=== PATIENT | female | born 1990 | race Caucasian/White ===

== ENCOUNTER 2017-04-12 17:36 | Emergency (ER) | payer OTHER ==
[~2017-04-12] VITALS: Ht 188 cm; Wt 122.0 kg
[2017-04-12 17:40] VITALS: Ht 188 cm; Wt 122.0 kg
[2017-04-12] MEDS ORDERED: ACETAMINOPHEN 325 MG TAB PO ONE (18:30)
--- NOTE | 2017-04-12 18:38 | RADRPT ---
PROCEDURE: CT Brain without contrast. CLINICAL INDICATION: Trauma. Pain. . TECHNIQUE: Serial axial computed tomographic images of the brain was performed on a CT scanner fro m the skull base through the vertex without contrast. Exam CTDlvol = 44 mGy and DLP = 720 mGy-cm. One of the following 3 dose reduction techniques were used: Automated exposure control; adjustment of the mA and/or kV according to patient size; or use of iterative reconstruction technique. COMPARISON: None available. FINDINGS: There is no fracture. The ventricles and sulci are normal in size and configuration. There is no m idline shift. There are no focal parenchymal abnormalities. There is no acute stroke. No acute in tracranial hemorrhage or abnormal extra-axial fluid collection. Visualized paranasal sinuses are c lear. IMPRESSION: 1. No acute post-traumatic abnormality. RPTAT: HMVK .Manas Frederick MD, MD Date Time Electronically viewed and signed by .Manas Frederick MD, MD on 04/12/2017 18:38 .K/
[2017-04-12] MEDS ORDERED: ACET1TAB40 PO (19:02)
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
[2017-04-12 19:23] VITALS: BP 152/72; PULSE 66; RESP 20
== END 2017-04-12 19:25 | disposition home or self-care (01) ==
LOC: FTE 17:36 → EDSEX 17:36 → FTE 19:25
DX: S00.83XA Contusion of other part of head, initial encounter (principal); W50.0XXA Accidental hit or strike by another person, initial encounter; Y92.9 Unspecified place or not applicable
CPT/HCPCS: 70450; Z7502; Z7610

== ENCOUNTER 2017-12-19 13:50 | Emergency (ER) | END 2017-12-19 14:34 | disposition home or self-care (01) ==